=== PATIENT | male | born 1960 | race Caucasian/White ===

== ENCOUNTER → 2019-03-19 | Day surgery (SDC) | payer OTHER ==
[~2019-03-19] VITALS: Ht 177.8 cm; Wt 90.7 kg
[~2019-03-19] MED LIST: FISH OIL 1,2001 EAC1 PO; GARLIC1 EAC1 PO; OMEGA 3-6-9 CO400 MG PO; [UNRECOGNIZED DRUG - OTHER] PO
[2019-03-19 11:05] VITALS: BP 136/86
[2019-03-19 11:07] VITALS: BP 136/86
[2019-03-19 12:30] VITALS: BP 131/86
[2019-03-19 12:45] VITALS: BP 137/92
[2019-03-19 13:00] VITALS: BP 152/96
== END | disposition home or self-care (01) ==
LOC: SDC 03-15 00:55
DX: Z12.11 Encounter for screening for malignant neoplasm of colon (principal); K21.9 Gastro-esophageal reflux disease without esophagitis; K29.50 Unspecified chronic gastritis without bleeding; K44.9 Diaphragmatic hernia without obstruction or gangrene; Z98.890 Other specified postprocedural states; Z79.899 Other long term (current) drug therapy; Z82.49 Family history of ischemic heart disease and other diseases of the circulatory system